=== PATIENT | male | born 1985 | race Caucasian/White ===

== ENCOUNTER → 2020-04-10 | Outpatient (CLI) | payer OTHER ==
[2014-03-07 04:44] VITALS: BP 113/58
[~2020-04-10] MED LIST: BUSP10TA PO; BUSP15TA PO; FLUV100C PO; MODA100T26 PO
--- NOTE | 2020-04-10 08:22 | RAD ---
EXAM: CT Abdomen and Pelvis without IV contrast INDICATION: Reason: LEFT SIDED FLANK PAIN HX KIDNEY STONES/LITHOTRIPSY X 2 YEARS AGO / Spl. Instructions: / History: TECHNIQUE: Multi-detector row CT images were acquired from the lung bases through the abdomen and pelvis without the use of IV contrast. Sagittal and coronal images were acquired from the transaxial data. All CT scans performed at this facility utilize dose optimization techniques as appropriate to the exam, including the following: Automated exposure control and adjustment of the mA and/or KV according to patient size (this includes techniques or standardized protocols for targeted exams where dose is indication/reason for exam). ORAL CONTRAST: None COMPARISON: None FINDINGS: The absence of IV contrast limits evaluation of soft tissue pathology. LOWER CHEST: Unremarkable LIVER: Unremarkable BILIARY SYSTEM: Gallbladder is unremarkable. Bile ducts are not dilated. PANCREAS: Unremarkable SPLEEN: Unremarkable ADRENALS: Unremarkable KIDNEYS & URETERS: A 1 cm stone in the inferior pole left kidney is present. No hydronephrosis, perirenal stranding or ureteral stones are identified. BLADDER: Unremarkable REPRODUCTIVE ORGANS: Unremarkable GASTROINTESTINAL: The stomach, small bowel, and colon show moderate stool throughout the large bowel. The appendix is normal. MESENTERY/PERITONEUM/RETROPERITONEUM: Unremarkable VASCULAR: Unremarkable LYMPH NODES: No adenopathy OSSEOUS & SOFT TISSUES: Unremarkable IMPRESSION: 1. Nonobstructing 1 cm stone in the inferior pole left kidney. Otherwise the urinary tract on noncontrast CT is unremarkable. 2. Moderate stool throughout the large bowel. Correlate for constipation. Electronically signed by: Charlie Lamas MD (04/10/2020 8:19 AM) [id number]
== END | disposition home or self-care (01) ==
LOC: CT 07:45
PROVIDERS: ATTEND Specialist
DX: N20.0 Calculus of kidney (principal)
CPT/HCPCS: 74176

== ENCOUNTER → 2021-07-25 | Outpatient (CLI) | payer OTHER ==
[2014-03-07 04:44] VITALS: BP 113/58
--- NOTE | 2021-07-25 15:56 | RAD ---
INDICATION: Reason: LEFT FLANK PAIN, H/O KIDNEY STONES / Spl. Instructions: / History: COMPARISON: April 2020 TECHNIQUE: Axial CT images were obtained through the abdomen and pelvis without intravenous contrast. One or more of the following individualized dose reduction techniques were utilized for this examinat ion: 1. Automated exposure control; 2. Adjustment of the mA and/or kV according to patient size; 3 . Use of iterative reconstruction technique. FINDINGS: Vascular: No abdominal aortic aneurysm. Hepatobiliary: No intrahepatic biliary duct dilation. Pancreas: No peripancreatic edema. Spleen: Spleen unremarkable. Renal/Bladder: Repeat demonstration of 1 cm nonobstructive left renal stone. No hydronephrosis. Urina ry bladder is partially distended with mild indistinctness of adjacent fat. Gastrointestinal: The appendix is near the upper limits of normal in size without definite adjacent i nflammation. Degenerative changes of the spine. IMPRESSION: * Nonobstructive left renal stone without hydronephrosis. * Minimal indistinctness of the fat adjacent to the urinary bladder. Could be artifactual in nature but would correlate with symptoms to ensure this is not from an early cystitis. Electronically signed by: Terrance Desir MD (07/25/2021 3:54 PM) [id number]
== END ==
LOC: CT 15:17
PROVIDERS: ATTEND Specialist
DX: N20.0 Calculus of kidney (principal); N32.89 Other specified disorders of bladder
CPT/HCPCS: 74176